=== PATIENT | female | born 2000 | race African-American/Black ===

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

== ENCOUNTER 2018-04-29 20:59 | Emergency (ER) | payer SELFPAY ==
[2018-04-29 21:30] VITALS: BP 106/70
--- NOTE | 2018-04-29 22:02 | UC ---
General HPI - HPI Summary HPI Summary: This is Surinder cano, documenting for attending Suzanne Guerra MD. Pt is a 17 y/o F c/o nausea and hot flashes onset ~3 days ago. Pt reports diaphoresis, hot flashes, nausea, cramping, weakness, tingling to legs, feet. Pt denies CP, SOB. She felt her face tingling and weakness in her legs while walking her dog earlier today. No medications taken for symptoms. No fevers, chills. No sick contact. LMP 1 week ago. Pt eat dill flavored potato chips and water in room without difficulty. Patient, and she was scheduled to start work at 9:00 Cipro called in because of how she's been feeling. Patient does request a work note. Patients medication reviewed this visit. - History of Current Complaint Chief Complaint: UCGeneralIllness Stated Complaint: NAUSEA,HOT FLASHES Time Seen by Provider: 04/29/18 21:45 Hx Obtained From: Patient Hx Last Menstrual Period: 04/21/18 Onset/Duration: Sudden Onset, Still Present Current Severity: None Pain Intensity: 0 Associated Signs & Symptoms: Positive: Diaphoresis, Nausea, Weakness. Negative : Chest Pain, SOB - Allergy/Home Medications Allergies/Adverse Reactions: Allergies Allergy/AdvReac Type Severity Reaction Status Date / Time Penicillins Allergy Nausea And Verified 04/29/18 21:23 Vomiting Home Medications: Home Medications NK [No Home Medications Reported] 04/29/18 [History Confirmed 04/29/18] PMH/Surg Hx/FS Hx/Imm Hx Previously Healthy: Yes Endocrine History: Other Other Endocrine History: NEG: DM Cardiovascular History: Other Other Cardiovascular History: NEG: CAD, HTN Other History Of: Negative For: HIV, Hepatitis B, Hepatitis C, Anticoagulant Therapy - Surgical History Surgical History: None - Family History Known Family History: Positive: Cardiac Disease, Hypertension, Other - shingles - Social History Occupation: Employed Part-time Lives: Dormitory/Roommates Alcohol Use: None Substance Use Type: None Smoking Status (MU): Former Smoker Have You Smoked in the Last Year: No Review of Systems Constitutional: Other - POS: diaphoresis, hot flashes Respiratory: Other - NEG: SOB Cardiovascular: Other - NEG: CP Gastrointestinal: Abdominal Pain - "cramping", Nausea Motor: Weakness Neurological: Numbness - Face All Other Systems Reviewed And Are Negative: Yes Physical Exam - Summary Physical Exam Summary: Vital Signs Reviewed: Yes A+Ox3, no distress. easily changes position, get on examination table Eyes: Conjunctiva Clear, RAFAEL. EOM intact and full ENT: Hearing grossly normal TM x 2 clear, mmoist, uvula midline, no exudate, no erythema Neck: Positive: Supple Respiratory: Positive: No respiratory distress, No accessory muscle use + CTA throughout no w/r Cardiovascular: RRR nl s1, s2 no m/r CBT <2 sec abd soft + BS nt/nd no guarding, no distension Musculoskeletal Exam: EAST x 4 without difficulty Strength Intact, ROM Intact Psychological: Positive: Normal Response To Family Skin: Positive: no rash, no ecchymosis CN 2-12 intact and full 5/5 abduction, flex/ext elbow, wrist against resistant 5/5 SLE, flex/ext knee, ankle + great toe extension + gross sensation throughout no difficulty with ambulation + heel/toe walking + heel/toe rocking Triage Information Reviewed: Yes Vital Signs: Initial Vital Signs Temp 97.8 F 04/29/18 21:24 Pulse 87 04/29/18 21:24 Resp 16 04/29/18 21:24 BP 106/70 04/29/18 21:24 Pulse Ox 100 04/29/18 21:24 Course/Dx - Course Course Of Treatment: Patient's 17-year-old female who states for 2 days she's been having nausea feeling shaky pharynx some paresthesias in her legs as well as in her face. Patient states her last pain was probably one week ago. Patient is sexually active and intermittently uses condoms. Patient called in to work today. On exam patient's vital signs noted to be stable and not concerning. Patient's physical exam complete without any acute findings. Patient eating chips and drinking water without difficulty. We'll check a urinalysis as well as a [id number] if these are both normal likely discharge patient home. Patient directed to go to the emergency department if her symptoms worsen or she is any concerns. Patient states go home and make chicken Parmesan. Patient advised that she should have clear to bland food until her stomach feeling better. Patient comfortable in agreement with plan. - Differential Dx - Multi-Symptom Provider Diagnoses: Parastasis. Nausea. Discharge - Sign-Out/Discharge Documenting (check all that apply): Patient Departure All imaging exams completed and their final reports reviewed: No Studies - Discharge Plan Condition: Stable Disposition: HOME Patient Education Materials: Paresthesia (ED), Weakness (ED), Fatigue (ED) Forms: *Work Release Referrals: Ann Ham, [facility] [Primary Care Provider] - 2 Days Additional Instructions: - Stay well hydrated. Drink plenty of non-alcoholic, non-caffinated beverages - For the first 6 hours, eat and drink clears (water, orion cassi, soup broth, jello, popsicles, Gatorade). If you tolerate this okay, add bland foods such as dry toast, scrambled eggs, crackers. Wait until you are feeling better for 24 hours before eating spicy food, acidic food, tomato based food, fried food. - Okay to alternate ibuprofen (Advil, Motrin) and Tylenol every 3 hours as needed for pain or fever - get plenty of restful sleep - it is recommended you take medications as prescribed by your doctor - contact your doctor to schedule a follow-up appointment. Contact your doctor or go to the emergency department with any questions or concerns - Billing Disposition and Condition Condition: STABLE Disposition: Home - Attestation Statements Document Initiated by Markibhema: Yes Documenting Markibe: Surinder Brand Provider For Whom Brandan is Documenting (Include Credential): Suzanne Guerra MD Scribe Attestation: Surinder Gasca, scribed for Suzanne Guerra MD on 04/30/18 at 0724. Scribe Documentation Reviewed: Yes Provider Attestation: The documentation as recorded by the Surinder cano accurately reflects the service I personally performed and the decisions made by me, Suzanne Guerra MD
== END 2018-04-29 22:30 | disposition home or self-care (01) ==
LOC: UCEAST 20:59
DX: R20.2 Paresthesia of skin (principal); R11.0 Nausea; R61 Generalized hyperhidrosis; R53.1 Weakness; Z88.0 Allergy status to penicillin; Z87.891 Personal history of nicotine dependence
CPT/HCPCS: 81003; 84702; 99211; G0463

== ENCOUNTER 2018-05-11 13:29 | Emergency (ER) | payer SELFPAY ==
--- NOTE | 2018-05-11 14:44 | ED ---
Throat Pain/Nasal Congestion - HPI Summary HPI Summary: This patient is a 17 year old F presenting to [facility] accompanied by friend with a chief complaint of sore throat that began earlier today. The patient rates the pain 10/10 in severity. Symptoms aggravated by nothing. Symptoms alleviated by nothing. Patient reports blurred vision, lightheadedness, cough, CP, SOB, and nausea. Patient denies headache, double vision, dysuria, hematuria, edema, rash, anxiety, and depression. - History of Current Complaint Chief Complaint: EDFluSymptoms Hx Obtained From: Patient Onset/Duration: Sudden Onset, Lasting Hours, Still Present Severity: Moderate Cough: Nonproductive - Allergies/Home Medications Allergies/Adverse Reactions: Allergies Allergy/AdvReac Type Severity Reaction Status Date / Time Penicillins Allergy Nausea And Verified 04/29/18 21:23 Vomiting PMH/Surg Hx/FS Hx/Imm Hx Previously Healthy: No Endocrine/Hematology History: Denies: Hx Anticoagulant Therapy, Hx Diabetes, Hx Thyroid Disease Cardiovascular History: Denies: Hx Congestive Heart Failure, Hx Deep Vein Thrombosis, Hx Hypertension , Hx Myocardial Infarction, Hx Pacemaker/ICD Respiratory History: Denies: Hx Asthma, Hx Chronic Obstructive Pulmonary Disease (COPD), Hx Lung Cancer, Hx Pneumonia, Hx Pulmonary Embolism GI History: Denies: Hx Gall Bladder Disease, Hx Gastrointestinal Bleed, Hx Ulcer, Hx Urosepsis History: Denies: Hx Kidney Stones, Hx Renal Disease Neurological History: Reports: Hx Seizures Denies: Hx Dementia, Hx Migraine, Hx Transient Ischemic Attacks (TIA) Psychiatric History: Denies: Hx Anxiety, Hx Depression, Hx Schizophrenia, Hx Bipolar Disorder Infectious Disease History: No Infectious Disease History: Denies: Hx Clostridium Difficile, Hx Hepatitis, Hx Human Immunodeficiency Virus (HIV), Hx of Known/Suspected MRSA, Hx Shingles, Hx Tuberculosis, Hx Known/ Suspected VRE, Hx Known/Suspected VRSA, History Other Infectious Disease, Traveled Outside the [place] in Last 30 Days - Family History Known Family History: Positive: Cardiac Disease, Hypertension, Other - shingles - Social History Occupation: Employed Full-time Lives: Alone Alcohol Use: None Hx Substance Use: No Substance Use Type: Reports: None Hx Tobacco Use: Yes Smoking Status (MU): Former Smoker Have You Smoked in the Last Year: No Review of Systems Positive: Chills Positive: Blurred Vision. Negative: Diplopia Positive: Sore Throat Positive: Chest Pain Positive: Shortness Of Breath, Cough Positive: Nausea Negative: dysuria, hematuria Negative: Edema Neurological: Other - Positive lightheadedness Negative: Headache Negative: Anxious, Depressed All Other Systems Reviewed And Are Negative: No Physical Exam - Summary Physical Exam Summary: Appearance: Alert, conversive, nontoxic appearing Skin: Warm, dry, no mottling, no rashes, no contusions HEENT: EOMI, PERRL, moist mucous membranes. Enlarged tonsils. Pus mostly to right tonsil. Neck: No masses on the neck, supple Respiratory: Clear to auscultation, breath sounds present, no rales, no rhonchi , no wheezes Cardiovascular: RRR, pulses are symmetrical in both lower and upper extremities Abdomen: Soft, non-tender Bowel Sounds: Present Musculoskeletal: No CVA tenderness, no obvious deformity, moving all extremities in a grossly normal manner Neurological: A&Ox3, CN II-XII Intact, moving all extremities symmetrically Psychiatric: Normal affect and mood Triage Information Reviewed: Yes Vital Signs On Initial Exam: Initial Vitals Temp Pulse Resp BP Pulse Ox 98.7 F 87 18 141/64 99 05/11/18 13:46 05/11/18 13:46 05/11/18 13:46 05/11/18 13:46 05/11/18 13:46 Vital Signs Reviewed: Yes Diagnostics - Vital Signs Vital Signs Temp Pulse Resp BP Pulse Ox 05/11/18 13:46 98.7 F 87 18 141/64 99 - Laboratory Lab Statement: Any lab studies that have been ordered have been reviewed, and results considered in the medical decision making process. Re-Evaluation - Re-Evaluation First Eval Re-Evaluation Time: 14:50 Change: Unchanged Comment: Pt states she can take amoxicillin even though she is allergic to penicillin EENT Course/Dx - Course Course Of Treatment: This patient is a 17 year old F presenting to [facility] accompanied by friend with a chief complaint of sore throat that began earlier today. Physical Exam Findings: Enlarged tonsils. Pus mostly to right tonsil. Patient will be discharged with prescription for Amoxicillin and with follow up from PCP. The patient is agreeable with this plan. - Diagnoses Provider Diagnoses: Pharyngitis Discharge - Sign-Out/Discharge Documenting (check all that apply): Patient Departure - Discharge home - Discharge Plan Condition: Stable Disposition: HOME Prescriptions: Amoxicillin PO (*) [Amoxicillin 500 MG CAP*] 500 mg PO TID #21 cap Referrals: Ann Ham, [employer]ADER [Primary Care Provider] - - Attestation Statements Document Initiated by Scribe: Yes Documenting Scribe: Carolee Hunt Provider For Whom Scribe is Documenting (Include Credential): Caitlyn Cat MD Scribe Attestation: ICarolee, scribed for Caitlyn Cat MD on 05/11/18 at 1503.
[2018-05-11 15:28] VITALS: BP 112/48
== END 2018-05-11 15:23 | disposition home or self-care (01) ==
LOC: ED 13:29
DX: J02.9 Acute pharyngitis, unspecified (principal); Z87.891 Personal history of nicotine dependence
CPT/HCPCS: 99282

== ENCOUNTER 2018-07-30 17:23 | Emergency (ER) | payer SELFPAY ==
[2018-07-30] MEDS ORDERED: Lidocaine 2% VISCOUS* 15 ML UDC PO ONE (18:00)
--- NOTE | 2018-07-30 19:47 | ED ---
Throat Pain/Nasal Congestion - HPI Summary HPI Summary: Patient with history of recurrent strep throat complains of new onset sore throat today. Patient states she just wants to get ahead of it as she has finals coming up. Denies fever, headache, neck stiffness, ear pain, cough, CP, SOB, N/V/D, abdominal pain, change in urine, change in BM. Medical history is none. - History of Current Complaint Chief Complaint: EDThroatPain Time Seen by Provider: 07/30/18 17:58 Hx Obtained From: Patient Onset/Duration: Sudden Onset, Lasting Hours Severity: Mild Associated Signs And Symptoms: Positive: Negative Cough: None - Allergies/Home Medications Allergies/Adverse Reactions: Allergies Allergy/AdvReac Type Severity Reaction Status Date / Time Penicillins Allergy Nausea And Verified 07/30/18 17:59 Vomiting PMH/Surg Hx/FS Hx/Imm Hx Endocrine/Hematology History: Denies: Hx Anticoagulant Therapy, Hx Diabetes, Hx Thyroid Disease Cardiovascular History: Denies: Hx Congestive Heart Failure, Hx Deep Vein Thrombosis, Hx Hypertension , Hx Myocardial Infarction, Hx Pacemaker/ICD Respiratory History: Denies: Hx Asthma, Hx Chronic Obstructive Pulmonary Disease (COPD), Hx Lung Cancer, Hx Pneumonia, Hx Pulmonary Embolism GI History: Denies: Hx Gall Bladder Disease, Hx Gastrointestinal Bleed, Hx Ulcer, Hx Urosepsis History: Denies: Hx Kidney Stones, Hx Renal Disease Neurological History: Reports: Hx Seizures Denies: Hx Dementia, Hx Migraine, Hx Transient Ischemic Attacks (TIA) Psychiatric History: Denies: Hx Anxiety, Hx Depression, Hx Schizophrenia, Hx Bipolar Disorder Infectious Disease History: No Infectious Disease History: Denies: Hx Clostridium Difficile, Hx Hepatitis, Hx Human Immunodeficiency Virus (HIV), Hx of Known/Suspected MRSA, Hx Shingles, Hx Tuberculosis, Hx Known/ Suspected VRE, Hx Known/Suspected VRSA, History Other Infectious Disease, Traveled Outside the [place] in Last 30 Days - Family History Known Family History: Positive: Cardiac Disease, Hypertension, Other - shingles - Social History Alcohol Use: None Hx Substance Use: No Substance Use Type: Reports: None Hx Tobacco Use: Yes Smoking Status (MU): Former Smoker Have You Smoked in the Last Year: No Review of Systems Constitutional: Negative Eyes: Negative Positive: Sore Throat Cardiovascular: Negative Respiratory: Negative Gastrointestinal: Negative Genitourinary: Negative Musculoskeletal: Negative Skin: Negative Neurological: Negative Psychological: Normal All Other Systems Reviewed And Are Negative: Yes Physical Exam Triage Information Reviewed: Yes Vital Signs On Initial Exam: Initial Vitals Temp Pulse Resp BP Pulse Ox 97.8 F 73 20 119/74 100 07/30/18 17:25 1218 17:25 1218 17:25 18 17:25 18 17:25 Vital Signs Reviewed: Yes Appearance: Positive: Well-Appearing Skin: Positive: Warm Head/Face: Positive: Normal Head/Face Inspection ENT: Positive: Pharyngeal erythema, TMs normal, Uvula midline. Negative: Tonsillar swelling, Tonsillar exudate, Trismus, Muffled voice, Hoarse voice Neck: Positive: Supple Respiratory/Lung Sounds: Positive: Clear to Auscultation Cardiovascular: Positive: Normal Abdomen Description: Positive: Nontender Musculoskeletal: Positive: Normal Neurological: Positive: Normal Psychiatric: Positive: Normal AVPU Assessment: Alert - Atkins Coma Scale Best Eye Response: 4 - Spontaneous Best Motor Response: 6 - Obeys Commands Best Verbal Response: 5 - Oriented Coma Scale Total: 15 Diagnostics - Vital Signs Vital Signs Temp Pulse Resp BP Pulse Ox 07/30/18 17:25 97.8 F 73 20 119/74 100 - Laboratory Lab Results: Lab Results 07/30/18 07/30/18 Range/Units 18:05 18:21 Monoscreen Negative (Negative) Group A Strep Rapid Negative (Negative) Lab Statement: Any lab studies that have been ordered have been reviewed, and results considered in the medical decision making process. EENT Course/Dx - Course Course Of Treatment: Patient with history of recurrent strep throat complains of new onset sore throat today. Patient states she just wants to get ahead of it as she has finals coming up. Denies fever, headache, neck stiffness, ear pain, cough, CP, SOB, N/V/D, abdominal pain, change in urine, change in BM. Medical history is none. Physical exam: Pharyngeal erythema, no tonsillar swelling or exudates. Physical exam otherwise unremarkable. Vital signs within normal limits and stable. Strep negative. Briscoe negative. Sent Rx for lidocaine and amoxicillin to pharmacy in case symptoms got worse as patient has finals coming up. Patient understands and approves of plan. - Diagnoses Provider Diagnoses: Pharyngitis Discharge - Sign-Out/Discharge Documenting (check all that apply): Patient Departure - Discharge Plan Condition: Stable Disposition: HOME Prescriptions: Amoxicillin 500 mg PO BID 10 Days #20 capsule Lidocaine 2% VISCOUS* [Xylocaine 2% Viscous*] 15 ml SWISH SPIT Q6H PRN #1 btl PRN Reason: Pain Patient Education Materials: Pharyngitis (ED) Forms: *Work Release Referrals: Ann Ham NP [Primary Care Provider] - Additional Instructions: Take antibiotics as directed. Follow-up with primary care. Return to the ED for any new or worsening symptoms - Billing Disposition and Condition Condition: STABLE Disposition: Home
[2018-07-30 19:59] VITALS: BP 117/70
== END 2018-07-30 19:57 | disposition home or self-care (01) ==
LOC: ED 17:23
DX: J02.9 Acute pharyngitis, unspecified (principal); F17.210 Nicotine dependence, cigarettes, uncomplicated
CPT/HCPCS: 36415; 86308; 87651; 99282

== ENCOUNTER 2018-09-09 18:09 | Emergency (ER) | payer SELFPAY ==
[2018-09-09 18:18] VITALS: BP 108/78
[2018-09-09] MEDS ORDERED: Lidocaine 2% VISCOUS* 15 ML UDC PO ONE (19:07)
--- NOTE | 2018-09-09 19:12 | ED ---
Throat Pain/Nasal Congestion - HPI Summary HPI Summary: Patient complains of left lower dental pain 2 days with pain radiating to left side face. Patient taking a old prescription of amoxicillin, ibuprofen 1000 mg at a time. Denies trauma, fever, cough, sore throat, CP, SOB, N/V 60, abdominal pain, change in urine, change in BM. Medical history is none. - History of Current Complaint Chief Complaint: EDDentalPain Time Seen by Provider: 09/09/18 18:33 Hx Obtained From: Patient Onset/Duration: Gradual Onset, Lasting Days Severity: Severe Associated Signs And Symptoms: Positive: Negative Cough: None - Allergies/Home Medications Allergies/Adverse Reactions: Allergies Allergy/AdvReac Type Severity Reaction Status Date / Time Penicillins Allergy Nausea And Verified 09/09/18 18:18 Vomiting PMH/Surg Hx/FS Hx/Imm Hx Endocrine/Hematology History: Denies: Hx Anticoagulant Therapy, Hx Diabetes, Hx Thyroid Disease Cardiovascular History: Denies: Hx Congestive Heart Failure, Hx Deep Vein Thrombosis, Hx Hypertension , Hx Myocardial Infarction, Hx Pacemaker/ICD Respiratory History: Denies: Hx Asthma, Hx Chronic Obstructive Pulmonary Disease (COPD), Hx Lung Cancer, Hx Pneumonia, Hx Pulmonary Embolism GI History: Denies: Hx Gall Bladder Disease, Hx Gastrointestinal Bleed, Hx Ulcer, Hx Urosepsis History: Denies: Hx Kidney Stones, Hx Renal Disease Sensory History: Denies: Hx Eye Prosthesis EENT History: Denies: Hx Deafness Neurological History: Reports: Hx Seizures Denies: Hx Dementia, Hx Migraine, Hx Transient Ischemic Attacks (TIA) Psychiatric History: Denies: Hx Anxiety, Hx Depression, Hx Schizophrenia, Hx Bipolar Disorder Infectious Disease History: No Infectious Disease History: Denies: Hx Clostridium Difficile, Hx Hepatitis, Hx Human Immunodeficiency Virus (HIV), Hx of Known/Suspected MRSA, Hx Shingles, Hx Tuberculosis, Hx Known/ Suspected VRE, Hx Known/Suspected VRSA, History Other Infectious Disease, Traveled Outside the [place] in Last 30 Days - Family History Known Family History: Positive: Cardiac Disease, Hypertension, Other - shingles - Social History Alcohol Use: None Hx Substance Use: No Substance Use Type: Reports: None Hx Tobacco Use: Yes Smoking Status (MU): Former Smoker Have You Smoked in the Last Year: No Review of Systems Constitutional: Negative Eyes: Negative Positive: Dental Pain Cardiovascular: Negative Respiratory: Negative Gastrointestinal: Negative Genitourinary: Negative Musculoskeletal: Negative Skin: Negative Neurological: Negative Psychological: Normal All Other Systems Reviewed And Are Negative: Yes Physical Exam - Summary Physical Exam Summary: No apical abscess noted. No dental trauma noted. No oral lesions or masses noted. Possible dental Rosalind left upper molar. Triage Information Reviewed: Yes Vital Signs On Initial Exam: Initial Vitals Temp Pulse Resp BP Pulse Ox 97.7 F 88 16 108/78 100 09/09/18 18:14 09/09/18 18:14 09/09/18 18:14 09/09/18 18:14 09/09/18 18:14 Vital Signs Reviewed: Yes Appearance: Positive: Well-Appearing Skin: Positive: Warm Head/Face: Positive: Normal Head/Face Inspection Eyes: Positive: Normal ENT: Positive: Normal ENT inspection Dental: Positive: Gross Decay/Caries @. Negative: Dental Fracture @, Abscess @ , Bleeding Neck: Positive: Supple Respiratory/Lung Sounds: Positive: Clear to Auscultation Cardiovascular: Positive: Normal Abdomen Description: Positive: Nontender Musculoskeletal: Positive: Normal Neurological: Positive: Normal Psychiatric: Positive: Normal AVPU Assessment: Alert - Dae Coma Scale Best Eye Response: 4 - Spontaneous Best Motor Response: 6 - Obeys Commands Best Verbal Response: 5 - Oriented Coma Scale Total: 15 Diagnostics - Vital Signs Vital Signs Temp Pulse Resp BP Pulse Ox 09/09/18 18:14 97.7 F 88 16 108/78 100 - Laboratory Lab Statement: Any lab studies that have been ordered have been reviewed, and results considered in the medical decision making process. EENT Course/Dx - Course Course Of Treatment: Patient complains of left lower dental pain 2 days with pain radiating to left side face. Patient taking a old prescription of amoxicillin, ibuprofen 1000 mg at a time. Denies trauma, fever, cough, sore throat, CP, SOB, N/V, abdominal pain, change in urine, change in BM. Medical history is none. Physical exam:No apical abscess noted. No dental trauma noted. No oral lesions or masses noted. Possible dental Rosalind left upper molar. Vital signs within normal limits. Rx for hydrocodone. Follow-up with dentist - Diagnoses Provider Diagnoses: Pain, dental Discharge - Sign-Out/Discharge Documenting (check all that apply): Patient Departure - Discharge Plan Condition: Stable Disposition: HOME Prescriptions: HYDROcodone/ACETAMIN 5-325 MG* [Mclaughlin 5-325 TAB*] 1 tab PO TID 2 Days #6 tab MDD 3 tabs Patient Education Materials: Toothache (ED) Referrals: Ann Ham NP [Primary Care Provider] - Additional Instructions: Follow-up with a dentist as soon as possible. - Billing Disposition and Condition Condition: STABLE Disposition: Home
[2018-09-09] MEDS ORDERED: HYDROcodone/ACETAMIN 5-325 MG* 1 TAB PO ONE (19:15)
== END 2018-09-09 19:25 | disposition home or self-care (01) ==
LOC: ED 18:09
DX: K08.89 Other specified disorders of teeth and supporting structures (principal); Z87.891 Personal history of nicotine dependence
CPT/HCPCS: 99282

== ENCOUNTER 2019-10-04 18:02 | Emergency (ER) | payer SELFPAY ==
[2019-10-04 18:26] LABS: Influenza A Molecular POSITIVE (Negative)
--- NOTE | 2019-10-04 18:42 | ED ---
Influenza-Like Illness - HPI Summary HPI Summary: The patient is a 19-year-old female presenting to [facility] [place] with a chief complaint of influenza-like illness onset yesterday. She reports that she has been experiencing fevers, chills, diaphoresis, productive cough causing chest pain, sore throat, and rhinorrhea. Symptoms are currently rated 9/10 in severity. There are no aggravating or alleviating factors. She has not taken any medications for treatment. She is concerned that she contracted the flu while she was here three days ago for an unrelated reason. Past medical history is significant for seizures, no surgeries. Former smoker, daily alcohol use, marijuana use. Medications reviewed. Allergies noted. - History of Current Complaint Chief Complaint: EDFluSymptoms Time Seen by Provider: 10/04/19 18:24 Hx Obtained From: Patient Onset/Duration: Gradual Onset, Lasting Days, Still Present Severity: Moderate Associated Signs & Symptoms: Fever, Cough - productive, Sore Throat, Nasal Congestion Related Hx: Possible Flu/Infectious Exposure - Allergy/Home Medications Allergies/Adverse Reactions: Allergies Allergy/AdvReac Type Severity Reaction Status Date / Time Penicillins AdvReac Mild Nausea And Verified 10/04/19 20:19 Vomiting hydrocodone AdvReac Nausea And Verified 10/04/19 20:19 Vomiting PMH/Surg Hx/FS Hx/Imm Hx Endocrine/Hematology History: Denies: Hx Anticoagulant Therapy, Hx Diabetes, Hx Thyroid Disease Cardiovascular History: Denies: Hx Congestive Heart Failure, Hx Deep Vein Thrombosis, Hx Hypertension , Hx Myocardial Infarction, Hx Pacemaker/ICD Respiratory History: Denies: Hx Asthma, Hx Chronic Obstructive Pulmonary Disease (COPD), Hx Lung Cancer, Hx Pneumonia, Hx Pulmonary Embolism GI History: Denies: Hx Gall Bladder Disease, Hx Gastrointestinal Bleed, Hx Ulcer, Hx Urosepsis History: Denies: Hx Kidney Stones, Hx Renal Disease Sensory History: Denies: Hx Eye Prosthesis, Hx Deafness Opthamlomology History: Denies: Hx Eye Prosthesis Neurological History: Reports: Hx Seizures Denies: Hx Dementia, Hx Migraine, Hx Transient Ischemic Attacks (TIA) Psychiatric History: Denies: Hx Anxiety, Hx Depression, Hx Schizophrenia, Hx Bipolar Disorder - Surgical History Surgical History: None Surgery Procedure, Year, and Place: none Infectious Disease History: No Infectious Disease History: Denies: Hx Clostridium Difficile, Hx Hepatitis, Hx Human Immunodeficiency Virus (HIV), Hx of Known/Suspected MRSA, Hx Shingles, Hx Tuberculosis, Hx Known/ Suspected VRE, Hx Known/Suspected VRSA, History Other Infectious Disease, Traveled Outside the [place] in Last 30 Days - Family History Known Family History: Positive: Cardiac Disease, Hypertension, Diabetes, Other - shingles, Lupus - Social History Alcohol Use: Daily Alcohol Amount: hasn't drank in 3 days Hx Substance Use: Yes Substance Use Type: Reports: Marijuana Hx Tobacco Use: Yes Smoking Status (MU): Former Smoker Have You Smoked in the Last Year: No Review of Systems Positive: Fever, Chills, Skin Diaphoresis Positive: Sore Throat, Nasal Discharge Positive: Chest Pain - secondary to cough Positive: Cough - productive All Other Systems Reviewed And Are Negative: Yes Physical Exam - Summary Physical Exam Summary: VITAL SIGNS: Reviewed. GENERAL: Patient is a well-developed and nourished female who is lying comfortable in the stretcher. Patient is not in any acute respiratory distress. HEAD AND FACE: No signs of trauma. No ecchymosis, hematomas or skull depressions. No sinus tenderness. Runny nose. EYES: PERRLA, EOMI x 2, No injected conjunctiva, no nystagmus. EARS: Hearing grossly intact. Ear canals and tympanic membranes are within normal limits. MOUTH: Pharyngeal erythema. No exudates. NECK: Supple, trachea is midline, no adenopathy, no JVD, no carotid bruit, no c- spine tenderness, neck with full ROM. CHEST: Symmetric, no tenderness at palpation. LUNGS: Clear to auscultation bilaterally. No wheezing or crackles. CVS: Regular rate and rhythm, S1 and S2 present, no murmurs or gallops appreciated. ABDOMEN: Soft, non-tender. No signs of distention. No rebound, no guarding, and no masses palpated. Bowel sounds are normal. EXTREMITIES: FROM in all major joints, no edema, no cyanosis or clubbing. NEURO: Alert and oriented x 3. No acute neurological deficits. Speech is normal and follows commands. SKIN: Dry and warm. Triage Information Reviewed: Yes Vital Signs On Initial Exam: Initial Vitals Temp Pulse Resp BP Pulse Ox 98.6 F 103 19 108/87 97 10/04/19 18:07 10/04/19 18:10/04/19 18:10/04/19 18:07 10/04/19 18:07 Vital Signs Reviewed: Yes Procedures - Sedation Patient Received Moderate/Deep Sedation with Procedure: No Diagnostics - Vital Signs Vital Signs Temp Pulse Resp BP Pulse Ox 10/04/19 18:07 98.6 F 103 19 108/87 97 - Laboratory Lab Results: Lab Results 10/04/19 Range/Units 18:10 Influenza A (Rapid) Positive A (Negative) Influenza B (Rapid) Not Reportable Lab Statement: Any lab studies that have been ordered have been reviewed, and results considered in the medical decision making process. Re-Evaluation - Re-Evaluation First Eval Re-Evaluation Time: 19:05 Comment: We discussed results and plan for discharge with Rx for Tamiflu. Flu Symptom Course/Dx - Course Assessment/Plan: The patient is a 19-year-old female presenting to [facility] [place] with a chief complaint of influenza-like illness onset yesterday. She reports that she has been experiencing fevers, chills, diaphoresis, productive cough causing chest pain, sore throat, and rhinorrhea. Symptoms are currently rated 9/10 in severity. There are no aggravating or alleviating factors. She has not taken any medications for treatment. She is concerned that she contracted the flu while she was here three days ago for an unrelated reason. Past medical history is significant for seizures, no surgeries. Former smoker, daily alcohol use, marijuana use. Medications reviewed. Allergies noted. Influenza B is positive. The patient was given a prescription for Tamiflu. I discussed all the findings and test results with the patient. Patient was instructed to return to the emergency room immediately if any of the symptoms return or worsen. Plan of care was discussed with the patient, and she understands and agrees. All questions were answered at patient satisfaction. There were no further complaints or concerns. Lung exam before discharge: CTA B/L. Good air exchange. No wheezing or crackles heard. CVS: S1 and S2 present. No murmurs appreciated. Patient is alert and oriented x 3. Patient is hemodynamically stable. Patient will be discharged home with follow up with PCP in the next 2-3 days. - Diagnoses Provider Diagnoses: Influenza Discharge ED - Sign-Out/Discharge Documenting (check all that apply): Patient Departure - Patient will be discharged home. - Discharge Plan Condition: Stable Disposition: HOME Prescriptions: Oseltamivir CAP* [Tamiflu CAP*] 75 mg PO BID #10 cap Patient Education Materials: Influenza (DC) Referrals: [facility] [Outside] - 3 Days Additional Instructions: Please take medication as prescribed. Follow up with your primary care provider in 2-3 days. Return to the emergency department for any new or worsening symptoms. - Billing Disposition and Condition Condition: STABLE Disposition: Home - Attestation Statements Document Initiated by Markibe: Yes Documenting Scribe: Julieta Alvarez Provider For Whom Brandan is Documenting (Include Credential): Dr. Ean Davies MD Scribe Attestation: Julieta Gasca scribed for Dr. Ean Davies MD on 10/04/19 at 2143. Scribe Documentation Reviewed: Yes Provider Attestation: The documentation as recorded by the Julieta cano accurately reflects the service I personally performed and the decisions made by me, Dr. Ean Davies MD Status of Scribe Document: Viewed
[2019-10-04] MEDS ORDERED: Oseltamivir CAP* 75 MG CAP PO ONE (19:23)
[2019-10-04 19:24] VITALS: BP 121/85
== END 2019-10-04 19:23 | disposition home or self-care (01) ==
LOC: ED 18:02
DX: J11.1 Influenza due to unidentified influenza virus with other respiratory manifestations (principal); R07.9 Chest pain, unspecified; R50.9 Fever, unspecified; Z87.891 Personal history of nicotine dependence; R05 Cough; Z88.0 Allergy status to penicillin
CPT/HCPCS: 99282; A9270-GY

== ENCOUNTER 2019-10-04 20:17 | Emergency (ER) | payer SELFPAY ==
[2019-10-04 20:20] VITALS: BP 130/84
[2019-10-04] MEDS ORDERED: Ondansetron ODT TAB* 4 MG SL PRN (21:05)
--- NOTE | 2019-10-04 21:07 | ED ---
GI/ HPI - HPI Summary HPI Summary: The patient is a 19-year-old female presenting to [facility] [place] emergency department with a chief complaint of nausea and vomiting in the last hour. She was in the emergency department diagnosed with influenza, and she was waiting for a ride when she became nauseous and emetic with a bile-like appearance likely due to the phlegm from her cough. She notes that she vomited the Tamiflu she was administered here. Her symptoms are rated 9/10 in severity. She endorses mild dizziness and diarrhea. Past medical history is significant for seizures, no surgeries. Former smoker, daily alcohol use, marijuana use. Medications reviewed. Allergies noted. - History of Current Complaint Chief Complaint: EDNauseaVomitDiarrh Time Seen by Provider: 10/04/19 21:04 Stated Complaint: VOMITING BLOOD Hx Obtained From: Patient Hx Last Menstrual Period: 04/21/18 Onset/Duration: Started Minutes Ago, Still Present Timing: Constant Severity: Moderate Current Severity: Moderate Pain Intensity: 9 Associated Signs and Symptoms: Positive: Dizziness, Nausea, Vomiting, Diarrhea Aggravating Factor(s): Nothing Alleviating Factor(s): Nothing - Allergy/Home Medications Allergies/Adverse Reactions: Allergies Allergy/AdvReac Type Severity Reaction Status Date / Time Penicillins AdvReac Mild Nausea And Verified 10/04/19 20:19 Vomiting hydrocodone AdvReac Nausea And Verified 10/04/19 20:19 Vomiting PMH/Surg Hx/FS Hx/Imm Hx Endocrine/Hematology History: Denies: Hx Anticoagulant Therapy, Hx Diabetes, Hx Thyroid Disease Cardiovascular History: Denies: Hx Congestive Heart Failure, Hx Deep Vein Thrombosis, Hx Hypertension , Hx Myocardial Infarction, Hx Pacemaker/ICD Respiratory History: Denies: Hx Asthma, Hx Chronic Obstructive Pulmonary Disease (COPD), Hx Lung Cancer, Hx Pneumonia, Hx Pulmonary Embolism GI History: Denies: Hx Gall Bladder Disease, Hx Gastrointestinal Bleed, Hx Ulcer, Hx Urosepsis History: Denies: Hx Kidney Stones, Hx Renal Disease Sensory History: Denies: Hx Eye Prosthesis, Hx Deafness Opthamlomology History: Denies: Hx Eye Prosthesis Neurological History: Reports: Hx Seizures Denies: Hx Dementia, Hx Migraine, Hx Transient Ischemic Attacks (TIA) Psychiatric History: Denies: Hx Anxiety, Hx Depression, Hx Schizophrenia, Hx Bipolar Disorder - Surgical History Surgical History: None Surgery Procedure, Year, and Place: none Infectious Disease History: No Infectious Disease History: Denies: Hx Clostridium Difficile, Hx Hepatitis, Hx Human Immunodeficiency Virus (HIV), Hx of Known/Suspected MRSA, Hx Shingles, Hx Tuberculosis, Hx Known/ Suspected VRE, Hx Known/Suspected VRSA, History Other Infectious Disease, Traveled Outside the [place] in Last 30 Days - Family History Known Family History: Positive: Cardiac Disease, Hypertension, Diabetes, Other - shingles, Lupus - Social History Alcohol Use: Daily Alcohol Amount: hasn't drank in 3 days Hx Substance Use: Yes Substance Use Type: Reports: Marijuana Hx Tobacco Use: Yes Smoking Status (MU): Former Smoker Have You Smoked in the Last Year: No Review of Systems Positive: Cough Positive: Vomiting, Diarrhea, Nausea Neurological: Other - dizziness All Other Systems Reviewed And Are Negative: Yes Physical Exam - Summary Physical Exam Summary: VITAL SIGNS: Reviewed. GENERAL: Patient is a well-developed and nourished female who is lying comfortable in the stretcher. Patient is not in any acute respiratory distress. HEAD AND FACE: No signs of trauma. No ecchymosis, hematomas or skull depressions. No sinus tenderness. Runny nose. EYES: PERRLA, EOMI x 2, No injected conjunctiva, no nystagmus. EARS: Hearing grossly intact. Ear canals and tympanic membranes are within normal limits. MOUTH: Pharyngeal erythema. No exudates. NECK: Supple, trachea is midline, no adenopathy, no JVD, no carotid bruit, no c- spine tenderness, neck with full ROM. CHEST: Symmetric, no tenderness at palpation. LUNGS: Clear to auscultation bilaterally. No wheezing or crackles. CVS: Regular rate and rhythm, S1 and S2 present, no murmurs or gallops appreciated. ABDOMEN: Soft, non-tender. No signs of distention. No rebound, no guarding, and no masses palpated. Bowel sounds are normal. EXTREMITIES: FROM in all major joints, no edema, no cyanosis or clubbing. NEURO: Alert and oriented x 3. No acute neurological deficits. Speech is normal and follows commands. SKIN: Dry and warm. Triage Information Reviewed: Yes Vital Signs On Initial Exam: Initial Vitals Temp Pulse Resp BP Pulse Ox 97.9 F 99 15 130/84 100 10/04/19 20:18 10/04/19 20:18 10/04/19 20:18 10/04/19 20:18 10/04/19 20:18 Vital Signs Reviewed: Yes Procedures - Sedation Patient Received Moderate/Deep Sedation with Procedure: No Diagnostics - Vital Signs Vital Signs Temp Pulse Resp BP Pulse Ox 10/04/19 20:18 97.9 F 99 15 130/84 100 - Laboratory Lab Statement: Any lab studies that have been ordered have been reviewed, and results considered in the medical decision making process. Re-Evaluation - Re-Evaluation First Eval Re-Evaluation Time: 21:20 Change: Improved Comment: She is feeling better. We discussed results and plan for discharge. GIGU Course/Dx - Course Assessment/Plan: The patient is a 19-year-old female presenting to [facility] emergency department with a chief complaint of nausea and vomiting in the last hour. She was in the emergency department diagnosed with influenza, and she was waiting for a ride when she became nauseous and emetic with a bile-like appearance likely due to the phlegm from her cough. She notes that she vomited the Tamiflu she was administered here. Her symptoms are rated 9/10 in severity. She endorses mild dizziness. Past medical history is significant for seizures, no surgeries. Former smoker, daily alcohol use, marijuana use. Medications reviewed. Allergies noted. Patient was given Zofran for her nausea and vomiting , and 1 dose of Tamiflu. Recommended discharge given the symptoms resolved. The patient is not vomiting blood. She also developed diarrhea. These are symptoms consistent with the diagnosis of influenza A. Patient is tolerating fluids without any nausea or vomiting. Therefore she will be discharged home with follow-up with PCP. I discussed all the findings and test results with the patient. Patient was instructed to return to the emergency room immediately if any of the symptoms return or worsen. Plan of care was discussed with the patient and understands and agrees. All questions were answered at patient satisfaction. There were no further complaints or concerns. Lung exam before discharge: CTA B/L. Good air exchange. No wheezing or crackles heard. CVS: S1 and S2 present. No murmurs appreciated. Patient is alert and oriented x 3. Patient is hemodynamically stable. Patient will be discharged home with follow up PCP in the next 2-3 days. - Diagnoses Provider Diagnoses: Nausea and vomiting, Influenza A Discharge ED - Sign-Out/Discharge Documenting (check all that apply): Patient Departure - Patient will be discharged home. - Discharge Plan Condition: Stable Disposition: HOME Prescriptions: Ondansetron ODT TAB* [Zofran 4 MG Odt TAB*] 4 mg PO Q8H PRN #8 tab.odt PRN Reason: Vomiting Patient Education Materials: Acute Nausea and Vomiting (ED) Referrals: [facility] [Outside] - 3 Days Additional Instructions: Please take Zofran as prescribed for your nausea and vomiting. Also continue taking your Tamiflu. Follow up with your primary care provider in 2-3 days. Return to the emergency department for any new or worsening symptoms. - Billing Disposition and Condition Condition: STABLE Disposition: Home - Attestation Statements Document Initiated by Markibhema: Yes Documenting Scribe: Julieta Alvarez Provider For Whom Brandan is Documenting (Include Credential): Dr. Ean Davies MD Scribe Attestation: Julieta Gasca scribed for Dr. Ean Davies MD on 10/04/19 at 2146. Scribe Documentation Reviewed: Yes Provider Attestation: The documentation as recorded by the Julieta cano accurately reflects the service I personally performed and the decisions made by me, Dr. Ean Davies MD Status of Scribe Document: Viewed
[2019-10-04] MEDS ORDERED: Ondansetron ODT TAB* 4 MG SL ONE (21:10)
[2019-10-04] MEDS ORDERED: Oseltamivir CAP* 75 MG CAP PO ONE (21:10)
== END 2019-10-04 21:28 | disposition home or self-care (01) ==
LOC: ED 20:17
DX: J10.1 Influenza due to other identified influenza virus with other respiratory manifestations (principal); R42 Dizziness and giddiness; R11.2 Nausea with vomiting, unspecified; R19.7 Diarrhea, unspecified; Z88.0 Allergy status to penicillin; Z87.891 Personal history of nicotine dependence
CPT/HCPCS: 99282; A9270-GY